=== PATIENT | female | born 1950 | race Caucasian/White ===

== ENCOUNTER 2020-06-21 13:37 | Emergency (ER) | payer MEDICARE, OTHER ==
[~2020-06-21] VITALS: Ht 162.6 cm; Wt 98.0 kg
[~2020-06-21 13:37] MED LIST: ACET120S; ACET325 PO; ACET500 PO; ALLO100; ALPR.25 PO; ALPR1; ALPR1 PO; AMLO10; AMLO5 PO; ASCO1ER PO; ASCO500; ASCO500 PO; ASPI81CH; ASPI81CH PO; ASPI81EC PO; ATOR40TA PO; AVEED750 MG/3 M; BUDE6HFA; CALCAVITD PO; CALCAVITDA; CALCAVITDA PO; CALPHO600; CALPHO600 PO; CIPR500 PO; CYCL10; CYCL10 PO; Calcarb 600 W-1 EACH PO; Colace100 MG PO; DIPH50 PO; DOCU100 PO; DULO30 PO; DULO60; DULO60 PO; Dazidox10 MG PO; ESTR1 PO; ESTR2 PO; EXFORGE; FENO145 PO; FENO160; FERR325 PO; FEXO60; FISH1000 PO; FLONASE ALLERG9.9 ML; FURO40; FURO40 PO; FURO80 PO; GABA300 PO; GABA600 PO; GLIM2 PO; GUAIFENESIN DM1 EACH PO; HYDCHL12.5 PO; HYOS.375ER PO; INSDET100 SC; INSDET100 SQ; INSULANPEN; IPRAOI INH; Kristalose20 GM PO; LACT10SY PO; LATA.005SO; LATA.005SO BOTHEYES; LATA.005SO OD; LEVFLO500 PO; LORA10 PO; LORA10ER PO; LOSA50; MAGCHL64ER; MAGOX 400400 MG PO; MAGOXI400; MAGOXI400 PO; METAMUCIL; METF500 PO; METO10 PO; METO100ER; METO2.5; METO2.5 PO; METO50 PO; METO50ER; METO50ER PO; MIRT30; MIRT30 PO; MOMENI; MORP15ER; MORP15ER PO; MORP20L PO; MORP30 PO; MORPHINE LIQUID; MORPHINE PO; Macrobid 100 M100 MG PO; NITR.4SL SL; NITR.6SL SL; NITR100CA PO; NITROGLYCERIN4.1 GM; Novolin R100 UNIT/M IM; OMEG1CAP30; OMEG1CAP30 PO; OMEP10ER PO; OMEP20ER; OMEP20ER PO; OMEPRAZOLE MAGN20 MG PO; ONDA8; OXYACE5T PO; PHENA200 PO; PHENY.5NI; POLY17UD PO; POTA10T PO; POTA20PAC PO; POTCHL20ER; POTCHL20ER PO; PRAV20 PO; PROM25 PO; PROM50S; Prilosec20 MG PO; RXPHEN200 PO; SELSUN; SENN187 PO; SITA25T2 PO; SORB70L PO; SORBITOL; SPIR50; SPIR50 PO; STOOL SOFTENER; STOOL SOFTNER; Symbicort 16010.2 GM; TIOT18; TRICOR; VITAMIN D5000 UNIT PO; Ventolin/Prove6.7 GM INH; Vitamin C1000 M1 PO; WARF4 PO; WARF5; WARF5 PO; WARF6 PO; WARF7.5; WARF7.5 PO; ZAROXOLYN PO; ZOLP10 PO; [UNRECOGNIZED DRUG - OTHER]; [UNRECOGNIZED DRUG - OTHER]; [UNRECOGNIZED DRUG - OTHER]; ferrous gluconate
[2020-06-21 15:43] LABS: International Normalized Ratio 2.59; Prothrombin Time Results 26.3 Sec (9.7-11.5)
== END 2020-06-21 16:25 | disposition home or self-care (01) ==
LOC: ER 13:37
PROVIDERS: Emergency Medicine
DX: S09.90XA Unspecified injury of head, initial encounter (principal); I10 Essential (primary) hypertension; Z79.01 Long term (current) use of anticoagulants; Z79.899 Other long term (current) drug therapy; Z95.0 Presence of cardiac pacemaker; Z88.1 Allergy status to other antibiotic agents; Z88.5 Allergy status to narcotic agent; Z88.6 Allergy status to analgesic agent; Z88.0 Allergy status to penicillin; Z88.2 Allergy status to sulfonamides; Z88.8 Allergy status to other drugs, medicaments and biological substances; V00.831A Fall from motorized mobility scooter, initial encounter; Y92.410 Unspecified street and highway as the place of occurrence of the external cause
CPT/HCPCS: 70450; 72125; 85610; 99284-25

== ENCOUNTER 2021-03-15 16:31 | Emergency (ER) | payer MEDICARE, OTHER ==
[~2021-03-15] VITALS: Ht 162.6 cm; Wt 90.3 kg
== END 2021-03-15 19:33 | disposition home or self-care (01) ==
LOC: ER 16:31
DX: S09.90XA Unspecified injury of head, initial encounter (principal); I12.9 Hypertensive chronic kidney disease with stage 1 through stage 4 chronic kidney disease, or unspecified chronic kidney disease; E11.9 Type 2 diabetes mellitus without complications; Z79.899 Other long term (current) drug therapy; Z79.01 Long term (current) use of anticoagulants; Z88.5 Allergy status to narcotic agent; Z88.2 Allergy status to sulfonamides; Z88.1 Allergy status to other antibiotic agents; Z88.8 Allergy status to other drugs, medicaments and biological substances; W05.0XXA Fall from non-moving wheelchair, initial encounter
CPT/HCPCS: 70450; 99283-25